=== PATIENT | female | born 1990 | race Caucasian/White ===

== ENCOUNTER 2019-05-11 10:05 | Emergency (ER) | payer MEDICAID ==
[~2019-05-11] VITALS: Ht 160 cm; Wt 57.2 kg
[2019-05-11 10:11] VITALS: Ht 160 cm; Wt 57.2 kg
[2019-05-11 12:58] VITALS: BP 122/78
== END 2019-05-11 12:58 | disposition home or self-care (01) ==
LOC: ED 10:05
DX: M54.5 Low back pain (principal)
CPT/HCPCS: J1885; J2060